=== PATIENT | female | born 1970 | race African-American/Black ===

== ENCOUNTER 2017-01-19 17:37 | Inpatient (IN) | payer MEDICARE, MEDICAID ==
[~2017-01-19] VITALS: Ht 165.1 cm; Wt 68.9 kg
[~2017-01-19 17:37] MED LIST: HYDR-522 PO
[2017-01-19 20:00] VITALS: BP_SYST 158; BP_SYST 162; BP_DIAS 86; BP_DIAS 96
[2017-01-19] MEDS ORDERED: DIPHENHYDRAMINE 50MG/ML VIAL IV PRN (21:30)
[2017-01-19] MEDS ORDERED: HYDROMORPHONE HCL/PF 2MG/ML CPJ IV PRN (21:30)
[2017-01-19] MEDS ORDERED: IPRATROPIUM/ALBUTEROL 0.5-3(2.5)MG/3ML NEB HHN PRN (21:30)
[2017-01-19] MEDS ORDERED: CLONIDINE 0.1MG TABLET PO PRN (21:30)
[2017-01-19] MEDS ORDERED: ONDANSETRON HCL 4MG/2ML VIAL IV PRN (21:30)
[2017-01-19] MEDS: HYDROCODONE/ACETAMINOPHEN 5/325MG TABLET PO PRN (22:11)
[2017-01-19] MEDS: FAMOTIDINE 20MG/2ML VIAL IV SCH (22:12)
[2017-01-20] MEDS: HYDROCODONE/ACETAMINOPHEN 5/325MG TABLET PO PRN ×5 (03:32→21:23)
[2017-01-20 06:15] LABS: BASOPHILS % 0.4 % (0.0-2.0); EOSINOPHILS % 1.7 % (0.0-5.0); HEMATOCRIT. 29.2 % (36.0-48.0); HEMOGLOBIN. 9.3 g/dL (12.0-16.0); LYMPHOCYTES % 16.7 % (20.0-50.0); MEAN CORPUSCULAR HEMOGLOBIN 28.6 pg (28.0-32.0); MEAN CORPUSCULAR VOLUME 90.2 fL (81.0-99.0); MEAN PLATELET VOLUME 8.5 fl (7.4-10.4); MONOCYTES % 9.2 % (2.0-8.0); PLATELET 335 x1000/uL (130-400); RED BLOOD CELL COUNT 3.24 mill/uL (4.2-5.4); RED CELL DISTRIBUTION WIDTH 17.2 % (11.6-14.6)
[2017-01-20 06:50] LABS: CARBON DIOXIDE 31 mEq/L (21-32); CHLORIDE 100 mEq/L (98-107); PREALBUMIN 24.3 mg/dL (20.0-40.0)
[2017-01-20 08:00] VITALS: BP 132/74
[2017-01-20] MEDS: FAMOTIDINE 20MG/2ML VIAL IV SCH (08:11)
[2017-01-20] MEDS: NICOTINE 21MG PATCH TD SCH (08:11)
[2017-01-20 15:37] LABS: CLARITY URINE CLEAR (CLEAR); COLOR URINE YELLOW (YELLOW); GLUCOSE URINE NEGATIVE (NEGATIVE); KETONES URINE NEGATIVE (NEGATIVE); LEUKOCYTE ESTERASE URINE NEGATIVE (NEGATIVE); NITRITE URINE NEGATIVE (NEGATIVE); OCCULT BLOOD URINE NEGATIVE (NEGATIVE); PROTEIN URINE NEGATIVE (NEGATIVE); SPECIFIC GRAVITY URINE 1.015 (1.005-1.030)
[2017-01-20] MEDS ORDERED: LACTULOSE 20G/30ML UDC PO NR (16:00)
[2017-01-20] MEDS: DOCUSATE SODIUM 100MG CAPSULE PO SCH (17:00)
[2017-01-20 20:00] VITALS: BP 144/88
[2017-01-20] MEDS ORDERED: LACTULOSE 20G/30ML UDC PO PRN (21:00)
[2017-01-20] MEDS: POLYETHYLENE GLYCOL 3350 (17GM) 1 DOSE PACK PO SCH (21:00)
[2017-01-21] MEDS: HYDROCODONE/ACETAMINOPHEN 5/325MG TABLET PO PRN ×4 (02:03→15:46)
[2017-01-21 06:10] VITALS: BP 116/70
[2017-01-21] MEDS: PANTOPRAZOLE 40MG DR TABLET PO SCH (06:13)
[2017-01-21] MEDS: NICOTINE 21MG PATCH TD SCH (08:39)
[2017-01-21] MEDS: DOCUSATE SODIUM 100MG CAPSULE PO SCH ×2 (08:39→17:00)
[2017-01-21 20:00] VITALS: BP 120/70
[2017-01-21] MEDS: POLYETHYLENE GLYCOL 3350 (17GM) 1 DOSE PACK PO SCH (20:08)
[2017-01-21] MEDS: HYDROCODONE/ACETAMINOPHEN 10/325MG TABLET PO PRN (20:08)
[2017-01-22] MEDS: HYDROCODONE/ACETAMINOPHEN 5/325MG TABLET PO PRN ×2 (01:43→06:21)
[2017-01-22] MEDS: PANTOPRAZOLE 40MG DR TABLET PO SCH (06:13)
[2017-01-22 08:00] VITALS: BP 116/72
[2017-01-22] MEDS: DOCUSATE SODIUM 100MG CAPSULE PO SCH ×2 (08:09→16:51)
[2017-01-22] MEDS: NICOTINE 21MG PATCH TD SCH (09:15)
[2017-01-22] MEDS: HYDROCODONE/ACETAMINOPHEN 10/325MG TABLET PO PRN ×2 (11:30→17:11)
[2017-01-22 20:00] VITALS: BP 100/61
[2017-01-22] MEDS: POLYETHYLENE GLYCOL 3350 (17GM) 1 DOSE PACK PO SCH (21:11)
[2017-01-23] MEDS: HYDROCODONE/ACETAMINOPHEN 10/325MG TABLET PO PRN ×2 (00:51→14:35)
[2017-01-23] MEDS: PANTOPRAZOLE 40MG DR TABLET PO SCH (06:08)
[2017-01-23] MEDS: HYDROCODONE/ACETAMINOPHEN 5/325MG TABLET PO PRN ×2 (06:09→20:33)
[2017-01-23 06:44] LABS: BASOPHILS % 0.7 % (0.0-2.0); EOSINOPHILS % 3.7 % (0.0-5.0); HEMATOCRIT. 32.1 % (36.0-48.0); HEMOGLOBIN. 10.3 g/dL (12.0-16.0); LYMPHOCYTES % 19.6 % (20.0-50.0); MEAN CORPUSCULAR HEMOGLOBIN 28.8 pg (28.0-32.0); MEAN CORPUSCULAR VOLUME 89.6 fL (81.0-99.0); MEAN PLATELET VOLUME 9.1 fl (7.4-10.4); MONOCYTES % 13.3 % (2.0-8.0); NEUTROPHILS % 62.7 % (40.0-76.0); PLATELET 438 x1000/uL (130-400); RED BLOOD CELL COUNT 3.58 mill/uL (4.2-5.4); RED CELL DISTRIBUTION WIDTH 16.6 % (11.6-14.6)
[2017-01-23 07:07] LABS: CARBON DIOXIDE 30 mEq/L (21-32); CHLORIDE 100 mEq/L (98-107); HDL CHOLESTEROL 56 mg/dL (40-59); LDL CHOLESTEROL 74 mg/dL (5-100); PHOSPHORUS 4.2 mg/dL (2.5-4.9); TOTAL IRON BINDING CAPACITY 389 ug/dL (250-450)
[2017-01-23 08:00] VITALS: BP 90/50
[2017-01-23 08:04] LABS: FOLIC ACID (FOLATE) SERUM 7.7 ng/mL (>5.38)
[2017-01-23] MEDS: DOCUSATE SODIUM 100MG CAPSULE PO SCH ×2 (09:00→17:31)
[2017-01-23] MEDS: NICOTINE 21MG PATCH TD SCH (09:18)
[2017-01-23] MEDS: ACETAMINOPHEN 650MG/20.3ML UDC PO PRN (11:07)
[2017-01-23] MEDS: CYANOCOBALAMIN 1000MCG/ML VIAL IM SCH (14:25)
[2017-01-23] MEDS: IRON SUCROSE COMPLEX 100 MG in SODIUM CHLORIDE 0.9% 100 ML IV SCH (17:31)
[2017-01-23 19:00] VITALS: BP 108/67
[2017-01-23] MEDS: POLYETHYLENE GLYCOL 3350 (17GM) 1 DOSE PACK PO SCH (20:34)
[2017-01-24] MEDS: HYDROCODONE/ACETAMINOPHEN 5/325MG TABLET PO PRN ×4 (05:03→23:37)
[2017-01-24] MEDS: PANTOPRAZOLE 40MG DR TABLET PO SCH (06:18)
[2017-01-24 08:00] VITALS: BP 91/52
[2017-01-24] MEDS: DOCUSATE SODIUM 100MG CAPSULE PO SCH ×2 (09:10→16:34)
[2017-01-24] MEDS: ACETAMINOPHEN 650MG/20.3ML UDC PO PRN (09:10)
[2017-01-24] MEDS: NICOTINE 21MG PATCH TD SCH (09:14)
[2017-01-24] MEDS: CYANOCOBALAMIN 1000MCG/ML VIAL IM SCH (09:42)
[2017-01-24] MEDS ORDERED: SODIUM CHLORIDE 0.9% 500 ML IV SCH (10:45)
[2017-01-24] MEDS: IRON SUCROSE COMPLEX 100 MG in SODIUM CHLORIDE 0.9% 100 ML IV SCH (16:34)
[2017-01-24 20:00] VITALS: BP 118/73
[2017-01-24] MEDS: POLYETHYLENE GLYCOL 3350 (17GM) 1 DOSE PACK PO SCH (21:00)
[2017-01-24] MEDS: ENOXAPARIN 40MG/0.4ML SYR SUBCUT SCH (21:21)
[2017-01-25] MEDS: HYDROCODONE/ACETAMINOPHEN 5/325MG TABLET PO PRN ×2 (05:17→20:35)
[2017-01-25] MEDS: PANTOPRAZOLE 40MG DR TABLET PO SCH (06:24)
[2017-01-25 08:00] VITALS: BP 111/66
[2017-01-25] MEDS: CYANOCOBALAMIN 1000MCG/ML VIAL IM SCH (08:32)
[2017-01-25] MEDS: NICOTINE 21MG PATCH TD SCH (08:32)
[2017-01-25] MEDS: DOCUSATE SODIUM 100MG CAPSULE PO SCH ×2 (08:33→17:48)
[2017-01-25] MEDS: HYDROCODONE/ACETAMINOPHEN 10/325MG TABLET PO PRN (13:00)
[2017-01-25] MEDS: IRON SUCROSE COMPLEX 100 MG in SODIUM CHLORIDE 0.9% 100 ML IV SCH (17:48)
[2017-01-25 20:00] VITALS: BP 137/76
[2017-01-25] MEDS: ENOXAPARIN 40MG/0.4ML SYR SUBCUT SCH (20:33)
[2017-01-25] MEDS: POLYETHYLENE GLYCOL 3350 (17GM) 1 DOSE PACK PO SCH (20:33)
[2017-01-26] MEDS: HYDROCODONE/ACETAMINOPHEN 5/325MG TABLET PO PRN ×2 (01:39→23:14)
[2017-01-26] MEDS: PANTOPRAZOLE 40MG DR TABLET PO SCH (06:33)
[2017-01-26 06:40] LABS: BASOPHILS % 1.1 % (0.0-2.0); EOSINOPHILS % 3.4 % (0.0-5.0); HEMATOCRIT. 31.3 % (36.0-48.0); HEMOGLOBIN. 10.1 g/dL (12.0-16.0); LYMPHOCYTES % 22.3 % (20.0-50.0); MEAN CORPUSCULAR HEMOGLOBIN 28.6 pg (28.0-32.0); MEAN CORPUSCULAR VOLUME 88.9 fL (81.0-99.0); MEAN PLATELET VOLUME 8.5 fl (7.4-10.4); NEUTROPHILS % 59.2 % (40.0-76.0); PLATELET 489 x1000/uL (130-400); RED BLOOD CELL COUNT 3.52 mill/uL (4.2-5.4); RED CELL DISTRIBUTION WIDTH 16.9 % (11.6-14.6)
[2017-01-26 07:10] LABS: CARBON DIOXIDE 26 mEq/L (21-32); CHLORIDE 102 mEq/L (98-107)
[2017-01-26 08:00] VITALS: BP 110/69
[2017-01-26] MEDS: NICOTINE 21MG PATCH TD SCH (08:45)
[2017-01-26] MEDS: DOCUSATE SODIUM 100MG CAPSULE PO SCH ×2 (08:45→16:25)
[2017-01-26] MEDS: CYANOCOBALAMIN 1000MCG/ML VIAL IM SCH (08:45)
[2017-01-26] MEDS: HYDROCODONE/ACETAMINOPHEN 10/325MG TABLET PO PRN ×2 (08:46→16:27)
[2017-01-26] MEDS: IRON SUCROSE COMPLEX 100 MG in SODIUM CHLORIDE 0.9% 100 ML IV SCH (16:25)
[2017-01-26 20:40] VITALS: BP 101/64
[2017-01-26] MEDS: POLYETHYLENE GLYCOL 3350 (17GM) 1 DOSE PACK PO SCH (21:00)
[2017-01-26] MEDS: ENOXAPARIN 40MG/0.4ML SYR SUBCUT SCH (21:26)
[2017-01-27 04:23] LABS: 25-HYDROXY VITAMIN D3 6.6 ng/mL (.)
[2017-01-27] MEDS: HYDROCODONE/ACETAMINOPHEN 10/325MG TABLET PO PRN ×2 (05:56→12:29)
[2017-01-27] MEDS: PANTOPRAZOLE 40MG DR TABLET PO SCH (06:31)
[2017-01-27 08:00] VITALS: BP 105/61
[2017-01-27] MEDS: DOCUSATE SODIUM 100MG CAPSULE PO SCH (08:12)
[2017-01-27] MEDS: NICOTINE 21MG PATCH TD SCH (08:15)
[2017-01-27] MEDS ORDERED: HYDR-3927 PO ×2 (11:17→11:39)
[2017-01-27] MEDS: IRON SUCROSE COMPLEX 100 MG in SODIUM CHLORIDE 0.9% 100 ML IV SCH (13:20)
[2017-01-27 13:40] VITALS: BP 109/71
== END 2017-01-27 15:37 | disposition home health service (06) | DRG 551 ==
PROVIDERS: ADMIT Physical Medicine & Rehabilitation Spinal Cord Injury Medicine; ATTEND Internal Medicine
DX: M48.02 Spinal stenosis, cervical region (principal); G82.50 Quadriplegia, unspecified; G95.9 Disease of spinal cord, unspecified; N39.0 Urinary tract infection, site not specified; D64.9 Anemia, unspecified; F17.210 Nicotine dependence, cigarettes, uncomplicated; J44.9 Chronic obstructive pulmonary disease, unspecified; K59.00 Constipation, unspecified; R26.9 Unspecified abnormalities of gait and mobility; R73.9 Hyperglycemia, unspecified; E61.1 Iron deficiency; Z60.2 Problems related to living alone; E55.9 Vitamin D deficiency, unspecified; E86.1 Hypovolemia; Z82.3 Family history of stroke
CPT/HCPCS: 36415; 80048; 80053; 80061; 81003; 82306; 82607; 82728; 82746; 83036; 83540; 83550; 83735; 84100; 84134; 84443; 84630; 85025; 87086; 93970; 97110; 97116; 97162; 97167; 97530; 97535; J1650; J3420; J3490; J7040; J7050; L0172

== ENCOUNTER 2017-07-04 13:09 | Emergency (ER) | payer MEDICARE, MEDICAID ==
[~2017-07-04] VITALS: Ht 160 cm; Wt 67.0 kg
[2017-07-04 16:57] VITALS: BP 119/66
== END 2017-07-04 18:10 | disposition home or self-care (01) ==
LOC: ER 13:21
DX: M48.061 Spinal stenosis, lumbar region without neurogenic claudication (principal); M47.894 Other spondylosis, thoracic region; F17.210 Nicotine dependence, cigarettes, uncomplicated; Z98.890 Other specified postprocedural states
CPT/HCPCS: 72146; 72148; 99284